=== PATIENT | female | born 1940 | race Caucasian/White ===

== ENCOUNTER → 2018-05-23 | Outpatient (RCR) | payer MEDICARE, BC ==
--- NOTE | 2018-02-22 16:06 | PT INITIAL EVALUATION ---
MEDICAL DIAGNOSIS: Left Shoulder ASD, BTR, RCR TREATMENT DIAGNOSIS: Left Shoulder ASD, BTR, RCR DATE OF ONSET: 02/15/18 SUBJECTIVE: Gia is a 77 year old female presenting to physical therapy following left shoulder rotator cuff repair surgery, with bicipital tendon repair and arthroscopic subacromial decompression on February 15, 2018. Pt reports that she thinks she injured her shoulder last April following moving to [place] with repeated lifting. Pt reports gradual onset of pain, but didn't do anything about it because she was so busy at the time. Since the surgery pt reports that she is doing well and recently had her stitches removed. Pain is absent at present, but reaches up to 5/10 at most. Pt is managing pain with medication of Percocet, but has cut back to 1-2x/day currently. Pt reports that she has been faithful about using her CMP machine 6x/day and that it feels really good now when she does it. REHAB PROBLEM LIST: Increased Pain Decreased ROM Decreased Strength Decreased Function Decreased ADL's PREVIOUS MEDICAL HISTORY: See EMR OCCUPATION: Retired OBJECTIVE: Pt presents in a sling support on the L arm with mild bruising on the medial upper arm that appears to be healing well. Posture: Rounded shoulders B. ROM: Left Shoulder PROM: Flexion: 145, Scaption: 111, Abd: 90, ER: 80, IR: 90. Strength: Not tested at this time secondary to recent surgery. Palpation: Pt has multiple scope locations with well healing incisions covered in steri strips. Incisions are not warm to touch and appear to be healing well without any signs of redness or irritation. Moderate to good mobility throughout each incision. Other Objective Findings: Quick DASH Outcome Measure: 59% Disability ASSESSMENT: Gia shows signs and symptoms consistent with recent left shoulder RTC surgery with BTR, and ASD. Physical therapy is indicated for this patient to address the above listed deficits and return pt strength, mobility and function to prior level for participation in ADL's. Short Term Goals In 3 weeks pt will have full PROM of the L shoulder in all directions for improved function with ADL's. In 6 weeks pt will have full AROM of the L shoulder for improved function with ADL's. In 8 weeks pt will improve L shoulder muscle strength to equal to that of the R shoulder for improved function with ADL's. In 8 weeks pt will improve QuickDASH score to <19% disability for improved function with ADL's. Patient's Goals Improve arm function. PLAN: Patient to be seen for Manual Therapy/STM/MET Strengthening/condition Ice/Heat Range of Motion Spinal Stabilization Ultrasound Stretching Iontophoresis Neuromuscular Re-ed Closed Chain Program Electrical Stim Posture/Body mechanics Home Exercise Program Therapeutic Activities 3x/Week for 2 Months If you have any questions, comments, or concerns about this report or plan, please contact me at . Thank you, Karla Christy, PT, DPT, CLT MTDD
--- NOTE | 2018-03-18 09:38 | PT PLAN OF CARE ---
Physician: Gerson Cramer MD Patient is being seen: 3x/Week Therapist: Karla Christy, PT, DPT, CLT Medical Diagnosis: Left Shoulder ASD, BTR, RCR Treatment Diagnosis: Left Shoulder ASD, BTR, RCR Date of Onset: 02/15/18 Date of Initial Evaluation: 02/22/18 Date patient was last seen: 03/16/18 Number of treatments: 10 Number of cancellations/No shows: 0 INTERVENTIONS: Manual Therapy/STM/MET Strengthening/condition Ice/Heat Range of Motion Spinal Stabilization Ultrasound Stretching Iontophoresis Neuromuscular Re-ed Closed Chain Program Electrical Stim Posture/Body mechanics Home Exercise Program Therapeutic Activities GOALS: In 3 weeks pt will have full PROM of the L shoulder in all directions for improved function with ADL's. In 6 weeks pt will have full AROM of the L shoulder for improved function with ADL's. In 8 weeks pt will improve L shoulder muscle strength to equal to that of the R shoulder for improved function with ADL's. In 8 weeks pt will improve QuickDASH score to <19% disability for improved function with ADL's. PATIENT'S GOAL: Improve arm function. Status of Patient's Goals: In Progress Patient Compliance: Good Prognosis: Good Reasons for continuing therapy: Gia shows excellent improvements with PROM with stretch at end range and only mild joint pain. Scapular strength shows good progress with pt to transition towards AAROM while maintaining good scapulo -humeral rhythm. Further PT is indicated for this patient to work towards functional strength and mobility with ADL's. Posture: Rounded shoulders B. ROM: Left Shoulder PROM: Flexion: 167, Scaption: 180, Abd: 170, ER: 80, IR: 90. Strength: Not tested at this time secondary to recent surgery. Palpation: Pt has multiple scope locations with well healing incisions covered in steri strips. Incisions are not warm to touch and appear to be healing well without any signs of redness or irritation. Moderate to good mobility throughout each incision. Outcome Measures: QuickDASH Score: 59% disability If you have any questions or concerns, please feel free to contact me at . Thank you, Karla Christy, PT, DPT, CLT. [facility]
--- NOTE | 2018-04-13 14:25 | PT PLAN OF CARE ---
Physician: Gerson Cramer MD Patient is being seen: 3x/week Therapist: Arley Santana, PT, DPT Medical Diagnosis: Left Shoulder ASD, BTR, RCR Treatment Diagnosis: Left Shoulder ASD, BTR, RCR Date of Onset: 02/15/18 Date of Initial Evaluation: 02/22/18 Date patient was last seen: 04/13/18 Number of treatments: 20 Number of cancellations/No shows: 0 INTERVENTIONS: Manual Therapy/STM/MET Strengthening/condition Ice/Heat Range of Motion Spinal Stabilization Ultrasound Stretching Iontophoresis Neuromuscular Re-ed Closed Chain Program Electrical Stim Posture/Body mechanics Home Exercise Program Therapeutic Activities GOALS: In 3 weeks pt will have full PROM of the L shoulder in all directions for improved function with ADL's. In 6 weeks pt will have full AROM of the L shoulder for improved function with ADL's. In 8 weeks pt will improve L shoulder muscle strength to equal to that of the R shoulder for improved function with ADL's. In 8 weeks pt will improve QuickDASH score to <19% disability for improved function with ADL's. PATIENT'S GOAL: Improve arm function. Status of Patient's Goals: In Progress Patient Compliance: Good Prognosis: Good Reasons for continuing therapy: iGa shows excellent improvements with PROM to AAROM to AROM with painful end feel with only flexion; however, all of the other motions demonstrated muscular end feels. Scapular strength shows good progress with pt as she has transitioned to AROM while maintaining good scapulo- humeral rhythm. She has decreased her quickDash outcome from 59% to 50%. Further PT is indicated for this patient to work towards functional strength and mobility with ADL's. Posture: Rounded shoulders B. ROM: Left Shoulder PROM: Flexion: 175, Scaption: 180, Abd: 178, ER: 80, IR: 90. L shoulder AROM: flexion: 143, scaption: 160, abduction: 154, ER: 63, IR: 55. Strength: Not tested at this time secondary to recent surgery. Palpation: Pt has multiple scope locations that are fully healed and demonstrates excellent accessory mobility. Outcome Measures: QuickDASH Score: 50% disability If you have any questions or concerns, please feel free to contact me at . Thank you, Arley Santana, PT, DPT [facility]
[~2018-05-23] MED LIST: ALE70 PO; BEN20 PO; CALC-488 PO; CALC500T6 PO; CELE-1 PO; CHOL100052 PO; CHOL500045 PO; DILT240C76 PO; ESOM40CA42 PO; ESTR; ESTR0.62 PO; ESTR1POW41 MC; ESZO3TAB37 PO; LEVO75TA73 PO; LOR7.5/325 PO; MULT-865 PO; NAPR220C12 PO; NITR-1 PO; PER PO; PROGEST; TRIA-20 PO; VALS1TAB63 PO; ZOLP-1 PO; [UNRECOGNIZED DRUG - CODE] VG; [UNRECOGNIZED DRUG - OTHER]
== END ==
LOC: PT 02-22 10:01
PROVIDERS: ATTEND Orthopaedic Surgery Adult Reconstructive Orthopaedic Surgery
DX: Z47.89 Encounter for other orthopedic aftercare (principal); M75.102 Unspecified rotator cuff tear or rupture of left shoulder, not specified as traumatic
CPT/HCPCS: 97161

== ENCOUNTER 2018-05-27 10:15 | Outpatient (RCR) | payer MEDICARE, BC ==
--- NOTE | 2018-05-25 15:43 | PT PLAN OF CARE ---
Physician: Gerson Cramer MD Patient is being seen: 2-3x/Week Therapist: Karla Christy, PT, DPT, CLT Medical Diagnosis: Left Shoulder ASD, BTR, RCR Treatment Diagnosis: Left Shoulder ASD, BTR, RCR Date of Onset: 02/15/18 Date of Initial Evaluation: 02/22/18 Date patient was last seen: 05/25/18 Number of treatments: 29 Number of cancellations/No shows: 0 INTERVENTIONS: Manual Therapy/STM/MET Strengthening/condition Ice/Heat Range of Motion Spinal Stabilization Ultrasound Stretching Iontophoresis Neuromuscular Re-ed Closed Chain Program Electrical Stim Posture/Body mechanics Home Exercise Program Therapeutic Activities GOALS: In 3 weeks pt will have full PROM of the L shoulder in all directions for improved function with ADL's. MET In 6 weeks pt will have full AROM of the L shoulder for compared to that of the R shoulder for improved function with ADL's. MET In 8 weeks pt will improve L shoulder muscle strength to equal to that of the R shoulder for improved function with ADL's. MET In 8 weeks pt will improve QuickDASH score to <19% disability for improved function with ADL's. MET PATIENT'S GOAL: Improve arm function. Status of Patient's Goals: 4/4 MET Patient Compliance: Good Prognosis: Good Reasons for continuing therapy: Gia shows return to near full functioning of the L shoulder. ROM is now equal or greater than that of the R UE and strength is symmetrical. Following onset of overuse with previous progression, pt experienced slight increased pain. Pain has now subsided with adjustment of HEP exercises and pt is able to progress again to resisted exercise in therapy sessions. Lingering deficits include pt endurance with ADL's and lifting heavy objects with the L shoulder. Further PT to increase pt confidence and potential of the L shoulder prior to discharge to [facility] for maintenance of function. Posture: Rounded elevated shoulders B. ROM: Left Shoulder PROM: Flexion: 175, Scaption: 180, Abd: 178, ER: 80, IR: 90. Shoulder AROM (L,R): flexion: 143, 130, scaption: 160, 160 abduction: 155, 150 ER: 70, 70, IR: 90, 90 Strength: B Shoulders all 5/5 MMT Palpation: Pt has multiple scope locations that are fully healed and demonstrates excellent accessory mobility. Outcome Measures: QuickDASH Score: 4.5% disability If you have any questions or concerns, please feel free to contact me at [phone]. Thank you, Karla Christy, PT, DPT, CLT [facility]
--- NOTE | 2018-05-30 13:45 | PT PLAN OF CARE ---
Physician: Gerson Cramer MD Patient is being seen: 2-3x/Week Therapist: Karla Christy, PT, DPT, CLT Medical Diagnosis: Left Shoulder ASD, BTR, RCR Treatment Diagnosis: Left Shoulder ASD, BTR, RCR Date of Onset: 02/15/18 Date of Initial Evaluation: 02/22/18 Date patient was last seen: 05/27/18 Number of treatments: 30 Number of cancellations/No shows: 0 INTERVENTIONS: Manual Therapy/STM/MET Strengthening/condition Ice/Heat Range of Motion Spinal Stabilization Ultrasound Stretching Iontophoresis Neuromuscular Re-ed Closed Chain Program Electrical Stim Posture/Body mechanics Home Exercise Program Therapeutic Activities GOALS: In 3 weeks pt will have full PROM of the L shoulder in all directions for improved function with ADL's. MET In 6 weeks pt will have full AROM of the L shoulder for compared to that of the R shoulder for improved function with ADL's. MET In 8 weeks pt will improve L shoulder muscle strength to equal to that of the R shoulder for improved function with ADL's. MET In 8 weeks pt will improve QuickDASH score to <19% disability for improved function with ADL's. MET PATIENT'S GOAL: Improve arm function. Status of Patient's Goals: 4/4 MET Patient Compliance: Good Prognosis: Good Reasons for discharge from therapy: Gia is to discharge from physical therapy at this time secondary to completion of 4/4 functional goals. ROM is now equal or greater than that of the R UE and strength is symmetrical. Pt is no longer experiencing any pain in her shoulder except for the occasional slight ache with over use. Pt has regained full strength and function and is able to perform all lifting and reaching ADL's without restrictions. Upon discharge pt is to continue with HEP to maintain ROM and function. Posture: Rounded elevated shoulders B. ROM: Left Shoulder PROM: Flexion: 175, Scaption: 180, Abd: 178, ER: 80, IR: 90. Shoulder AROM (L,R): flexion: 143, 130, scaption: 160, 160 abduction: 155, 150 ER: 70, 70, IR: 90, 90 Strength: B Shoulders all 5/5 MMT Palpation: Pt has multiple scope locations that are fully healed and demonstrates excellent accessory mobility. Outcome Measures: QuickDASH Score: 4.5% disability If you have any questions or concerns, please feel free to contact me at [phone]. Thank you, Karla Christy, PT, DPT, CLT MTDD
== END 2018-05-27 18:00 | disposition home or self-care (01) ==
LOC: PT 10:15
PROVIDERS: ATTEND Orthopaedic Surgery Adult Reconstructive Orthopaedic Surgery
DX: Z47.89 Encounter for other orthopedic aftercare (principal); M75.102 Unspecified rotator cuff tear or rupture of left shoulder, not specified as traumatic

== ENCOUNTER → 2018-06-07 | Outpatient (CLI) | payer MEDICARE, BC ==
[~2018-06-07] MED LIST changes: +LEVO50TA86 PO
[2018-06-07 14:28] LABS: PLATELET COUNT, AUTOMATED 345 K/uL (150-450)
== END ==
LOC: LAB 13:27
PROVIDERS: ATTEND Family Medicine
DX: E03.9 Hypothyroidism, unspecified (principal); R19.7 Diarrhea, unspecified
CPT/HCPCS: 36415; 82040; 82247; 82310; 82374; 82435; 82565; 82947; 84075; 84132; 84155; 84295; 84443; 84450; 84460; 84520; 85025

== ENCOUNTER → 2018-07-18 | Outpatient (CLI) | payer MEDICARE, BC | LOC: LAB 10:45 | PROVIDERS: ATTEND Family Medicine | DX: E03.9 Hypothyroidism, unspecified (principal) | CPT/HCPCS: 36415; 84443 ==

== ENCOUNTER 2018-07-26 09:00 | Outpatient (RCR) | payer MEDICARE, BC ==
--- NOTE | 2018-07-12 15:00 | PT INITIAL EVALUATION ---
MEDICAL DIAGNOSIS: s/p L TKR with swelling TREATMENT DIAGNOSIS: same DATE OF ONSET: 07/12/16 SUBJECTIVE: Gia Tomas presents to physical therapy with complaints of persistent L knee swelling for a total knee that was performed about 2 years ago. She denies any pain or achiness. She reports that she would like to see if we could reduce the swelling and improve that range of motion of her L knee so that she can return to yoga. She reports that she has some stiffness in the am for about 2 minutes and then it loosens up especially if she rides the bike. REHAB PROBLEM LIST: Decreased ROM Decreased Strength Decreased Endurance Decreased Function PREVIOUS MEDICAL HISTORY: See EMR OCCUPATION: Retired OBJECTIVE: Posture: She demonstrates minimal postural deviations such as increased B rounded shoulders, increased thoracic kyphosis, and decreased lumbar lordosis. ROM: L knee PROM-AROM: (-3-0-110) Strength: B hip abduction, extension, flexion, B knee flexion and extension, and B ankle DF and PF: 4/5 with no pain. B hip adduction: 5/5 with no pain Palpation: She is not TTP Sensation: Intact L2-S1; however, she does have reduced sensation around L lateral knee Special Tests: no quad lag = good quad contraction. minimal restriction of patellar mobility in all directions. circumference: superior patella: 48 cm, mid patella: 47 cm, and inferior patella: 42 cm. Mobility: Independent Gait: She demonstrated normal gait mechanics and did not demonstrate any gait deviations ASSESSMENT: Gia will benefit from skilled physical therapy addressing the listed impairments to improve function and QOL. Short Term Goals 2 weeks: Pt will be independent with home exercise program to improve function and QOL. 6 weeks: Pt will demonstrate significant improvements in B hip, knee, and ankle strength from baseline to 4+/5 or greater to improve function and QOL. Patient's Goals increase L knee bend so that she can get back to yoga and try to decrease swelling PLAN: Patient to be seen for Manual Therapy/STM/MET Strengthening/condition Range of Motion Work Hardening/Cond Stretching Closed Chain Program Home Exercise Program Therapeutic Activities 2x/Week for 4 Weeks If you have any questions, comments, or concerns about this report or plan, please contact me at . Thank you, Arley Santana, PT, DPT MTDD
[~2018-07-26 09:00] MED LIST changes: +LEVO25TA61 PO
--- NOTE | 2018-07-26 15:07 | PT PLAN OF CARE ---
Physician: Elmer Zavala MD Patient is being seen: 2x/week Therapist: Arley Santana, PT, DPT Medical Diagnosis: s/p L TKR with swelling Treatment Diagnosis: same Date of Onset: 07/12/16 Date of Initial Evaluation: 07/12/18 Date patient was last seen: 07/26/18 Number of treatments: 4 Number of cancellations/No shows: 0 INTERVENTIONS: Manual Therapy/STM/MET Strengthening/condition Range of Motion Work Hardening/Cond Stretching Closed Chain Program Home Exercise Program Therapeutic Activities GOALS: 2 weeks: Pt will be independent with home exercise program to improve function and QOL. MET 6 weeks: Pt will demonstrate significant improvements in B hip, knee, and ankle strength from baseline to 4+/5 or greater to improve function and QOL. Progressing PATIENT'S GOAL: increase L knee bend so that she can get back to yoga and try to decrease swelling Status of Patient's Goals: Progressing Patient Compliance: Good Prognosis: Good Reasons for continuing therapy: This is a discharge note for Gia Tomas. She reports that she has not felt any change in her swelling. However, she reports that she feels like her knee flexion is starting to change. She reports that she would like to perform her program at home and feels like she could be successful with her current home program.She continues to be independent on her specific exercises to remodel her tissues in order to improve knee flexion along with her supine elevated swelling reduction exercises. As a result of being independent on her program and how long it takes to remodel these tissues, she will continue to perform her specific exercise program to improve knee flexion and hopefully reduce swelling along the way. Posture: She demonstrates minimal postural deviations such as increased B rounded shoulders, increased thoracic kyphosis, and decreased lumbar lordosis. ROM: L knee PROM-AROM: (-3-0-133) Strength: B hip abduction, extension, flexion, B knee flexion and extension, and B ankle DF and PF: 4/5 with no pain. B hip adduction: 5/5 with no pain Palpation: She is not TTP Special Tests: no quad lag = good quad contraction. minimal restriction of patellar mobility in all directions. circumference: superior patella: 47 cm, mid patella: 46 cm, and inferior patella: 42 cm. Mobility: Independent If you have any questions, please contact me at [phone]. Thank you, Arley Santana, PT, DPT MTDD
== END 2018-07-26 18:00 | disposition home or self-care (01) ==
LOC: PT 09:00
PROVIDERS: ATTEND Orthopaedic Surgery Adult Reconstructive Orthopaedic Surgery
DX: M25.462 Effusion, left knee (principal); Z96.652 Presence of left artificial knee joint
CPT/HCPCS: 97161

== ENCOUNTER → 2018-11-08 | Outpatient (CLI) | payer MEDICARE, BC ==
[~2018-11-08] MED LIST changes: +AMLO-125 PO; +IOPAMIDOL 76% 100 ML INFUS BTL 100 ML ONE; +LOSA100T75 PO; +LOSA25TA57 PO; +OMEP-137 PO
--- NOTE | 2018-11-08 11:55 | RADIOLOGY IMAGING REPORT ---
FACILITY: [facility] [place] PATIENT NAME: Gia Tomas : 1940 MR: [id number] V: [id number] EXAM DATE: ORDERING PHYSICIAN: GORDO OTOOLE TECHNOLOGIST: Location: [facility] [place] Patient: Gia Tomas : 1940 Visit/Account:[id number] Date of Sevice: 11/08/2018 CT CHEST (CONTRAST) History: Right upper lobe lung mass TECHNIQUE: Contiguous axial images were performed through the chest to the level of the adrenal gla nds following the administration of IV contrast. Coronal and sagittal reformatting was also perform ed.Dose Lowering Technique One of the following dose optimization techniques was utilized in the performance of this exam: Autom ated exposure control; adjustment of the mA and/or kV according to the patient's size; or use of an i terative reconstruction technique. Specific details can be referenced in the facility's radiology C T exam operational policy. Contrast: 75 mL [id number] COMPARISON STUDIES: Single view chest October 20, 2018. Lungs / Pleura: There is a focal lobular area of airspace consolidation in the lateral right upper lobe containing air bronchograms and measures 3 x 2.2 x 1.9 cm. There is fibrotic stranding towards the lateral pleural margin. Is a small amount linear stranding a djacent to the major fissure on the right in the inferior right middle lobe which may represent small amount of scarring or atelectasis. No evidence of pleural effusions. Mediastinum/nodes: There is a 1.8 x 0.8 cm AP window lymph node several small pretracheal and prevas cular space lymph node there is a 1.6 x 1 cm right hilar lymph node Heart and vessels: negative. Musculoskeletal / Body wall: There is a gentle levoconvex curvature to the thoracic spine with mild spondylotic changes Upper abdomen: There postsurgical changes from a cholecystectomy. The common bile duct measures 1. 3 cm in diameter at the head of the pancreas. These changes may simple be related to the prior ilda cystectomy. There is a small hiatal hernia IMPRESSION: There is a focal lobular area of airspace consolidation with air bronchograms in the lateral right up per lobe measuring 3 x 2.2 x 1.9 cm. Differential diagnosis would include a neoplastic process or a focal infectious/inflammatory process. This was present on a prior chest radiograph from from 19 day s ago. If the patient has undergone treatment for pneumonia in the interim the possibility of a neop lastic process seems more likely. Short-term interval follow-up CT following treatment to evaluate f or resolution versus PET/CT and/or tissue diagnosis recommended There is a 1.6 x 1 cm right hilar lymph node which could be reactive versus metastatic Postsurgical changes from a cholecystectomy with dilatation of the common bile duct up to 1.3 cm in d iameter. This could simply be related to the postsurgical changes. If patient has findings suggesti ve of biliary obstruction and MRCP is recommended Report Dictated By: Veronica Segura MD at 11/08/2018 11:39 AM Report E-Signed By: Veronica Segura MD at 11/08/2018 11:50 AM MANANN:[id number]
== END ==
LOC: CT 01:15
PROVIDERS: ATTEND Family Medicine
DX: M47.894 Other spondylosis, thoracic region (principal); R59.0 Localized enlarged lymph nodes; Z90.49 Acquired absence of other specified parts of digestive tract; R91.8 Other nonspecific abnormal finding of lung field
CPT/HCPCS: 71260; Q9967

== ENCOUNTER → 2018-11-22 | Outpatient (CLI) | payer MEDICARE, BC ==
[~2018-11-22] MED LIST changes: -IOPAMIDOL 76% 100 ML INFUS BTL 100 ML ONE
[2018-11-22 09:12] LABS: PLATELET COUNT, AUTOMATED 364 K/uL (150-450)
[2018-11-22 09:24] LABS: INR 0.94
== END ==
LOC: LAB 08:55
PROVIDERS: ATTEND Family Medicine
DX: Z01.812 Encounter for preprocedural laboratory examination (principal); R91.8 Other nonspecific abnormal finding of lung field; I10 Essential (primary) hypertension
CPT/HCPCS: 36415; 82310; 82374; 82435; 82565; 82947; 84132; 84295; 84520; 85025; 85610; 85730

== ENCOUNTER 2018-12-06 10:37 | Outpatient (RCR) | payer MEDICARE, BC ==
[2018-12-06] MEDS ORDERED: DOXY150T15 PO (11:10)
--- NOTE | 2018-12-06 14:55 | TOBIN CONSULT ---
EVENT DATE: December 06, 2018 CHIEF COMPLAINT/REASON FOR EVALUATION Newly diagnosed adenocarcinoma of the right upper lobe. Patient also presenting with radiographic criteria consistent with mediastinal lymphadenopathy. Primary mass 3 x 2.2 x 1.9 cm with right hilar lymph nodes at 1.6 cm and low density central mediastinal lymph nodes measuring up to 1.[address] scan pending. STAGE T2a N2 Mx HISTORY This is a pleasant 78-year old lady who I have worked into the Oncology Clinic today for initial consultation at the request of Dr. Reza. The patient is known to me as I have previously been involved with treating [facility] the [facility]. Patient is a nonsmoker. She recently was seen by Dr. Reza with fairly routine clinical evaluation for elevated blood pressure by her report. She was having some atypical chest discomfort and chest x-ray was then requested. The chest x- ray revealed a 3 cm new right upper lobe mass with indistinct margins on service date October 20, 2018 at [facility]. Chest CT scan was advised. The patient then underwent CT scan of the thorax and concurrent CT of the head with and without contrast. The latter was due to nonspecific headaches. The head CT was unremarkable with exception of small air fluid level in the sphenoid sinus. The latter was consistent with sinusitis. A CT of the thorax confirmed a 3 x 2 x 1.9 cm irregular mass in the lateral right upper lobe. This was not present on prior imaging back in 2005. The patient also had a 1.8 x 0.8 cm AP window lymph node, small pretracheal lymph nodes. Prevascular lymph node was also appreciated. Finally, there was a 1.6 x 1 cm right hilar lymph node. The density is abnormal of the lymph nodes on review of the films and these are highly suspicious lymph nodes for tumor involvement. Patient denies any recent infections. She is not having any significant cough. No hemoptysis. She denies any shortness of breath. No fever or persistent bone pain. The patient was sent to [place], where CT-guided needle biopsy was performed of the right upper lobe. The procedure was on November 23, 2018 and was consistent with an adenocarcinoma with acinar and lepidic growth patterns. Cells were positive for CK7 and TTF-1. No complications from the biopsy. Patient had recent blood work on November 22, 2018 with a normal CBC and BMP. Patient is being seen for initial consultation today. CURRENT MEDICATIONS 1. Amlodipine 5 mg 2 tablets q. day. 2. Omeprazole 20 mg q. day. 3. Levothyroxine 50 mcg q. day. 4. Estradiol 0.75 mcg q. day. 5. Vitamin D3 5000 units q. day. 6. Calcium carbonate 1000 mg q. day. 7. MDI. ALLERGIES None. REVIEW OF SYSTEMS Occasional mild headaches but not persistent generally with Tylenol. Rare cough. No chest pain or palpitations at this time. No GI complaints. Patient did have a colonoscopy within the last month, which was normal according to patient's report, although she was found to have some H. pylori changes and is on doxycycline with a PPI at this time by her verbal report to me. PAST MEDICAL HISTORY 1. New lung cancer with history as above. 2. Hypertension. 3. Hypothyroidism. 4. Degenerative joint disease. 5. Osteoporosis. PAST SURGICAL HISTORY 1. Left knee replacement, July 2016. 2. Cholecystectomy, December 2017. 3. Colonoscopy, October 2018. 4. Rotator cuff on the left, January 2018. FAMILY HISTORY Notable for sister with multiple myeloma, 14 year time course. She lives in [place], [place]. Dad had colon cancer probably in his 60's and in his 70's, metastatic to liver. Mother had cancer perhaps in her late 80's but she is uncertain of the type. She lived to age 88. Sister with myeloma was diagnosed around 70. Patient is and is accompanied by her . Two children who liver in [place], ages 54 and 57. She is retired. Social alcohol use weekly, wine and/or beer. Nonsmoker. Secondhand smoke to wood burning in the house. REVIEW OF SYSTEMS Notable for mildly diminished loss of appetite in the last four weeks. Occasional swelling in the ankles, which developed after she started on Amlodipine. Occasional loose bowels. No blood. PHYSICAL EXAMINATION GENERAL: This is a pleasant 78-year old female who appears slightly younger than her stated age by five years in my opinion. KPS performance status is 90. VITALS: BP 148/85, pulse 86, respirations 16, temperature 96.9, O2 sat 95% on room air, weight 174 pounds. HEENT: Entirely unremarkable. No peripheral lymphadenopathy detected. LUNGS: Fair air exchange with no rales, wheezes bilaterally. CARDIOVASCULAR: Heart sounds are regular. No audible murmur. ABDOMEN: Soft. No gross mass or organomegaly. EXTREMITIES: Trace edema in the ankles bilaterally. Otherwise unremarkable. No clubbing. NEUROLOGICAL: Intact. IMPRESSION This is a pleasant 78-year old lady who is newly diagnosed with adenocarcinoma of the right upper lobe. This was detected incidentally. The patient is a non- smoker so we will need to try to track the cytogenetics of the tumor within the next several weeks with the aid of her medical oncology team. Patient is referred to Dr. Mendoza and will see him tomorrow afternoon. I am requesting a PET CT scan to be done as soon as possible for staging as well as radiation treatment planning. If the lymph nodes are metabolically active, I would carry the patient in stage III category and the patient would receive combination chemotherapy and radiation therapy. If the lymph nodes are negative on PET CT scan, I think we should consider a mediastinoscopy and actually sample the lymph nodes. I will request baseline PFTs as well within the next week. I talked in general terms about the natural history of lung cancer with generalized description of stage III cancer today based on the CT appearance with hilar and mediastinal lymph nodes. Patient and asked appropriate questions. I will review the PET CT images as quickly as they are available with the patient and . I have copied the reports to Dr. Reza and Dr. Mendoza. I would hope to have the oncology treatment plan fully established within the next 14 days. Baseline PFTs will also be requested. More to follow at that time. Thank you for the referral. MIGDALIA
[2018-12-08] MEDS ORDERED: GADOBENATE 529MG/1ML 15ML VIAL IVP ONE (10:04)
[2019-02-09] MEDS ORDERED: LISI20TA29 PO (13:18)
== END 2019-03-05 ==
LOC: RAON 10:37
PROVIDERS: ATTEND Radiology Radiation Oncology
DX: C34.11 Malignant neoplasm of upper lobe, right bronchus or lung (principal); Z79.899 Other long term (current) drug therapy; I10 Essential (primary) hypertension; E03.9 Hypothyroidism, unspecified; M85.80 Other specified disorders of bone density and structure, unspecified site
CPT/HCPCS: 99202; A9577

== ENCOUNTER → 2018-12-15 | Outpatient (CLI) | payer MEDICARE, BC ==
[~2018-12-15] MED LIST changes: +DOXY150T15 PO
== END ==
LOC: RESP 10:29
PROVIDERS: ATTEND Radiology Radiation Oncology
DX: J98.4 Other disorders of lung (principal)
CPT/HCPCS: 94060; 94726; 94729

== ENCOUNTER 2018-12-21 13:56 | Outpatient (RCR) | payer MEDICARE, BC ==
[2018-12-07 11:59] VITALS: BP 149/83
--- NOTE | 2018-12-08 13:16 | RADIOLOGY IMAGING REPORT ---
FAC[place] [facility] [place]IENT NAME: Gia Tomas : 1940 MR: [id number] V: [id number] EXAM DATE: ORDERING PHYSICIAN: RAYA REYES TECHNOLOGIST: Location: [facility] Patient: Gia Tomas : 1940 Visit/Account:[id number] Date of Sevice: 12/08/2018 EXAMINATION: MRI Brain without intravenous contrast MRI Brain with intravenous contrast HISTORY: New diagnosis of lung cancer. COMPARISON: Head CT dated 10/20/2018. TECHNIQUE: Multi-planar, multi-sequence brain MRI was performed before and after IV gadolinium. CONTRAST: 15 mL of IV MultiHance FINDINGS: Brain volume: Normal. Sagittal midline structures: Negative. Ventricles: Negative. Acute ischemic changes: None. Hemorrhage: None. Masses / edema: None. Enhancement: Negative. Deng-white: Negative. White matter: A few T2/FLAIR hyperintensities in the deep white matter bilaterally. Vessels: Negative. Extra-axial: Negative. Calvarium / scalp: Negative. Skull base: Negative. Visualized sinuses / orbits: Negative. Visualized upper neck: Negative. IMPRESSION: 1. No evidence of metastasis. 2. Mild chronic white matter disease, nonspecific but most likely representing chronic microvascular ischemia. Report Dictated By: Car Cunningham MD at 12/08/2018 1:06 PM Report E-Signed By: Car Cunningham MD at 12/08/2018 1:12 PM WSN:[id number]
--- NOTE | 2018-12-19 08:42 | ONCOLOGY HISTORY AND PHYSICAL ---
EVENT DATE: December 07, [address] Reza. REASON FOR CONSULTATION Lung cancer. CHIEF COMPLAINT Patient feels well today. HISTORY OF PRESENT ILLNESS Gia is a very pleasant 78-year old female who is here with her today. She has never smoked cigarettes. She has otherwise been generally pretty healthy but she had presented recently to Dr. Reza. A chest x-ray was performed when she reportedly presented with chest pain. The x-ray revealed concern for a right upper lobe mass on October 20, 2018. A CT scan of the chest was then ordered. This was performed on November 08, 2018. The CT was notable for a focal lobular area of air space consolidation with air bronchograms in the lateral right upper lobe measuring 3 x 2.2 x 1.9 cm. There was a 1.6 x 1 cm right hilar lymph node, reactive versus metastatic. There were post surgical changes from a cholecystectomy. She subsequently had a CT-guided biopsy of the right upper lobe mass on November 23. Biopsy results were consistent with adenocarcinoma with acinar and lepidic growth patterns. She did well with the biopsy. She was subsequently seen in consultation by Dr. Cleaning in radiation/oncology and CT PET scan was appropriately ordered. She is here for medical oncology consultation. The patient reports that she has never smoked so all of this is quite a surprise. She is very active and quite independent. She has questions about next steps. REVIEW OF SYSTEMS Otherwise negative and all systems reviewed. CURRENT MEDICATIONS 1. Amlodipine daily. 2. Omeprazole daily. 3. Levothyroxine daily. 4. Estradiol daily. 5. Vitamin D3 daily. 6. Calcium carbonate daily. ALLERGIES No known drug allergies. PAST MEDICAL HISTORY 1. Lung cancer, as above. 2. Hypertension. 3. Hypothyroidism. 4. Osteoporosis. PAST SURGICAL HISTORY She has undergone left knee replacement, cholecystectomy and rotator cuff repair on the left. FAMILY HISTORY Positive for a sister with multiple myeloma. Her father had a history of colon cancer. There is a history of cancer in her mother but of unknown type. SOCIAL HISTORY The patient is a nonsmoker. There is no history of illicit drug use or alcohol abuse. She is retired. VITAL SIGNS Temperature 97.0, blood pressure 149/83, heart rate 88, respirations 16, oxygen saturation 93% on room air, weight 77.8 kg. PHYSICAL EXAMINATION GENERAL: Patient is alert and oriented x3, in no apparent distress, sitting in the exam room chair. She appears healthy. She is interactive and pleasant. HEENT: Anicteric sclerae. NEUROLOGIC: Grossly nonfocal. Gait is normal. EXTREMITIES: No edema, clubbing or cyanosis. SKIN: No concerning rash or lesions. LABORATORY STUDIES Reviewed per the [facility] health Record. IMAGING/PATHOLOGY Please see history of present illness. ASSESSMENT AND PLAN Newly diagnosed adenocarcinoma of right lung. I had a lengthy and in-depth visit with Gia and her today. There were many insightful and appropriate questions asked as her has undergone treatment here for prostate cancer. Gia is otherwise generally pretty healthy and her performance status is excellent. She is a nonsmoker, raising the concern for a sales route driver helper/actionable mutation as the cause for this lung cancer. We spent time today reviewing her imaging and pathology. We discussed staging as it relates to prognosis and treatment decision making. A radiology read of the scan would indicate N1 disease, but there may be some concern for N2 disease after reviewing Dr. Cleaning's record. I have strongly recommended that her case be brought before the Thoracic Multidisciplinary Conference at the [facility] this coming week. We will be back in touch with her with board recommendations. In the meantime, I would hope that her CT PET scan can be performed for review. She will also need an MRI of the brain to complete her stating, although she does not have focal neurologic symptoms. Appropriate molecular studies will be ordered through the [facility] and we will check PDL1 status as well. We discussed the potential treatment modalities that could be presented to her as options. These include surgical resection, radiation therapy as well as systemic therapy. At this point, she would appear to be a reasonable surgical candidate, if staging would support surgical intervention. As discussed, I will also be back in touch with Dr. Cleaning about recommendations. The patient and her did have some confusion today about who their oncology provider should be. We spent time discussing the difference between radiation oncology and medical oncology and would consider both Dr. Cleaning and myself to be her oncology providers. All questions answered today. I will plan to see her back for followup the next time I am at my [facility] in [place]. I spent a total of 60 minutes of time face to face with the patient and her today and 55 minutes were spent in direct counseling and coordination of care. MIGDALIA
[~2018-12-21] VITALS: Ht 151 cm; Wt 79.2 kg
[2018-12-21 14:03] VITALS: BP 158/80
--- NOTE | 2018-12-22 03:48 | ONCOLOGY FOLLOW UP NOTE ---
EVENT DATE: December 21, 2018 REASON FOR FOLLOWUP Adenocarcinoma of the right lung. CHIEF COMPLAINT Cough. INTERIM HISTORY Gia returns to clinic for a followup visit today. She is accompanied by her . She reports that she has been doing just fine for the most part, with no new symptoms with the exception of a modest dry cough that started a couple days ago. She reports no fever. She has had no sore throat. She has noticed no shortness of breath or chest pain. Her appetite is good, and her weight has been stable. She has had no changes in bowel or bladder habits. She has visited with Dr. Mcclure in the pulmonary clinic, and there are plans for her to undergo bronchoscopy/EBUS later this week to stage the mediastinum. She has not yet had surgical consultation. REVIEW OF SYSTEMS Otherwise negative, and all systems were reviewed. ONCOLOGY HISTORY Adenocarcinoma of the right lung. * Initial presentation with chest pain in September 2018. * Chest x-ray reveals concern for a right upper lobe mass. * CT chest performed on 11/08/2018 shows a focal lobular area of airspace consolidation with air bronchograms in the lateral right upper lobe, measuring 3 x 2.2 x 1.9 cm. There was a 1.6 x 1 cm right hilar lymph node, reactive versus metastatic. Postsurgical changes from cholecystectomy. * 11/23/2018: Patient undergoes CT-guided biopsy of right upper lobe mass. Pathology results are consistent with adenocarcinoma with acinar and lepidic growth patterns. * Patient undergoes CT/PET scan on 12/09/2017. This reveals lobulated right upper lobe mass with mild uptake consistent with known adenocarcinoma. No convincing PET evidence of metastatic disease. Suspected focal diverticulitis in the proximal sigmoid colon. * MRI brain performed on 12/08/2018 shows no evidence of metastatic disease. PAST MEDICAL HISTORY 1. Lung cancer, as above. 2. Hypertension. 3. Hypothyroidism. 4. Osteoporosis. CURRENT MEDICATIONS 1. Amlodipine daily. 2. Omeprazole daily. 3. Levothyroxine daily. 4. Estradiol daily. 5. Vitamin D3 daily. 6. Calcium carbonate daily. ALLERGIES No known drug allergies. PAST MEDICAL HISTORY 1. Lung cancer, as above. 2. Hypertension. 3. Hypothyroidism. 4. Osteoporosis. PAST SURGICAL HISTORY She has undergone left knee replacement, cholecystectomy and rotator cuff repair on the left. FAMILY HISTORY Positive for a sister with multiple myeloma. Her father had a history of colon cancer. There is a history of cancer in her mother but of unknown type. SOCIAL HISTORY The patient is a nonsmoker. There is no history of illicit drug use or alcohol abuse. She is retired. PHYSICAL EXAMINATION VITAL SIGNS: Temperature is 95.5, blood pressure 158/80, heart rate 78, respirations 16, oxygen saturation 96% on room air, weight 79.2 kg. GENERAL: Patient is alert and oriented x3, in no apparent distress, sitting in the exam room chair. She appears healthy, and she is interactive and pleasant. HEENT: Anicteric sclerae. LUNGS: Clear to auscultation bilaterally. HEART: Regular rate and rhythm. NEUROLOGIC: Grossly nonfocal, and her gait is normal. EXTREMITIES: No edema, clubbing or cyanosis. There is no erythema or tenderness to palpation. LABORATORY STUDIES Reviewed per the [facility] Record. IMAGING Please see Oncology History. ASSESSMENT AND PLAN Adenocarcinoma of right lung. I had a good visit with Gia and her today. Since our last visit, she has undergone CT/PET scan, Brain MRI, and she has also had pulmonary consultation. We spent time today reviewing her imaging studies. The CT/PET scan is revealing of the right lung mass, but there are no convincing findings on the PET scan for mediastinal lymphadenopathy. There is question of a possible right hilar lymph node, however. The MRI of the brain reveals no evidence of metastatic disease. We spent time discussing next steps. Later this week, she will go for a bronchoscopy/EBUS with biopsies to stage the mediastinum, and I will make surgical referral today to Dr. Lora with [facility]. As discussed, her case was presented at multidisciplinary conference at the [facility] last week. It was agreed that if mediastinal staging shows no evidence of N2 disease, next step would be lobectomy. Her molecular profiling studies are currently pending. Depending on final pathology, we will need to consider the possibility of adjuvant therapy, as well. All questions answered today. MIGDALIA
[2019-02-09] MEDS ORDERED: LISI20TA29 PO (13:18)
== END 2019-03-06 ==
LOC: ONC 13:56
PROVIDERS: ATTEND Internal Medicine Medical Oncology
DX: C34.11 Malignant neoplasm of upper lobe, right bronchus or lung (principal); R05 Cough
CPT/HCPCS: G0463 ×4; 70553; 99202; 99212; A9577

== ENCOUNTER → 2019-01-03 | Outpatient (CLI) | payer MEDICARE, BC ==
--- NOTE | 2019-01-03 16:30 | RADIOLOGY IMAGING REPORT ---
[facility] PATIENT NAME: Gia Tomas : 1940 MR: [id number] V: [id number] EXAM DATE: [id number] ORDERING PHYSICIAN: GORDO OTOOLE TECHNOLOGIST: Location: [facility] Patient: Gia Tomas : 1940 Visit/Account:[id number] Date of Sevice: 01/03/2019 DEXA Scan Clinical history: Lung cancer, osteoporosis follow-up. Comparison: DEXA scan from 01/15/2017. LUMBAR SPINE: The bone mineral density (BMD) measured from L2-L4 correlates with a Z-score of 0 and a T-score of -1 .4 which is osteopenia as defined by the World Health Organization. The corresponding risk of fractu re in the lumbar spine is 2-3 times increased compared with a young adult reference population. This value has increase by 1.1 % since the prior study. More than 5% change is considered significant. HIP: Bone mineral density (BMD) measured in the LEFT total hip region correlates with a Z-score zero and a T-score of -1.5 which is osteopenia as defined by the World Health Organization. The corresponding risk of fracture in the hip is 3 times increased compared to a young adult reference population. This value has increase by 0.2 % since the prior study. More than 5% change is considered significant. T score left femoral neck -2 Bone mineral density (BMD) measured in the Femoral Neck region measures 0.755 g/cm?. IMPRESSION: 1. Lumbar spine: Osteopenia. There has been 1.1% increase in the bone mineral density since the pre vious exam. 2. Left Total Hip: Osteopenia. There has been 0.2% increase in the bone mineral density since the p revious exam. 3. Femoral Neck: Bone Mineral Density is 0.755 g/cm? The next DEXA scan of this patient should include the following sites: L1-L4 and the left hip. FRAX? WHO Fracture Risk Assessment Tool link: <http://www.shef.ac.uk/FRAX/tool.jsp?locationValue=9> PLEASE NOTE: 1) The World Health Organization defines low BMD as follows: T-score Normal > -1 Osteopenia < -1 and > -2.5 Osteoporosis < -2.5 without fractures Established osteoporosis < -2.5 with fractures 2) In general, you may wish to consider: Diagnosis Treatment Follow-up DEXA Normal BMD Prevention 2-3 years Osteopenia Prevention/therapy 1-2 years Osteoporosis Therapy Yearly 3) Fracture risk estimated from the T-score is more accurate for vertebral fractures (often spontane ous) than for hip fractures. Report Dictated By: Veronica Segura MD at 01/03/2019 4:24 PM Report E-Signed By: Veronica Segura MD at 01/03/2019 4:25 PM WSN:[id number]
== END ==
LOC: RAD 15:47
PROVIDERS: ATTEND Family Medicine
DX: M85.89 Other specified disorders of bone density and structure, multiple sites (principal)
CPT/HCPCS: 77080

== ENCOUNTER → 2019-02-21 | Outpatient (CLI) | payer MEDICARE, BC ==
[~2019-02-21] MED LIST changes: +LISI20TA29 PO
== END ==
LOC: LAB 11:11
PROVIDERS: ATTEND Family Medicine
DX: E03.9 Hypothyroidism, unspecified (principal); I10 Essential (primary) hypertension
CPT/HCPCS: 36415; 82310; 82374; 82435; 82565; 82947; 84132; 84295; 84443; 84520

== ENCOUNTER → 2019-06-05 | Outpatient (CLI) | payer MEDICARE, BC ==
[~2019-06-05] MED LIST changes: -CALC-488 PO; +CALC-743 PO; +HYDR12.561 PO; +MIRT-22 PO; +MIRT7.5T2 PO
== END ==
LOC: LAB 11:17
PROVIDERS: ATTEND Family Medicine
DX: I10 Essential (primary) hypertension (principal)
CPT/HCPCS: 36415; 82310; 82374; 82435; 82565; 82947; 84132; 84295; 84520